=== PATIENT | female | born 1960 | race Caucasian/White ===

== ENCOUNTER 2017-08-01 22:31 | Emergency (ER) | payer SELFPAY ==
[2017-08-01 23:31] LABS: BASO # 0.1 K/uL (0.0-0.2); BASO % 0.8 % (0.0-2.0); EOS # 0.2 K/uL (0.0-0.7); EOS % 3.2 % (0.0-4.0); HEMATOCRIT 37.5 % (34.0-47.0); LYMPH # 3.4 K/uL (1.0-4.3); LYMPH % 48.8 % (20.0-40.0); MEAN CELL VOLUME 74.4 fL (81.0-99.0); MEAN CORPUSCULAR HEMOGLOBIN 23.9 pg (27.0-31.0); MEAN CORPUSCULAR HGB CONC 32.2 g/dL (33.0-37.0); MONO # 0.6 K/uL (0.0-0.8); MONO % 8.3 % (0.0-10.0); RED CELL DISTRIBUTION WIDTH 14.6 % (11.5-14.5); WHITE BLOOD COUNT 6.9 K/uL (4.8-10.8)
[2017-08-01 23:39] LABS: CHLORIDE 110 mmol/L (98-107)
[2017-08-01 23:40] LABS: POTASSIUM 3.8 mmol/L (3.6-5.2); SODIUM 143 mmol/L (132-148)
[2017-08-01 23:42] LABS: ALB/GLOB RATIO 1.3 (1.0-2.1); ALKALINE PHOSPHATASE 58 U/L (38-126); ALT/SGPT 32 U/L (9-52); AST/SGOT 23 U/L (14-36); BILIRUBIN,TOTAL 0.5 mg/dL (0.2-1.3); BLOOD UREA NITROGEN 20 mg/dL (7-17); CARBON DIOXIDE 24 mmol/L (22-30); GFR AFRICAN-AMERICAN > 60; GLUCOSE,RANDOM 96 mg/dL (65-105); TOTAL PROTEIN 7.3 g/dL (6.3-8.3)
[2017-08-01 23:43] LABS: CALCIUM 8.9 mg/dl (8.6-10.4)
[2017-08-02 00:14] LABS: THYROID STIMULATING HORMONE 5.58 mIU/L (0.46-4.68)
[2017-08-02 00:17] LABS: RBC URINE 2 /hpf (0-3); URINE BACTERIA RARE (<OCC); URINE BILIRUBIN NEGATIVE (NEGATIVE); URINE BLOOD NEGATIVE (NEGATIVE); URINE COLOR Yellow (YELLOW); URINE GLUCOSE (UA) NORMAL (Normal); URINE KETONE TRACE mg/dL (NEGATIVE); URINE LEUKOCYTE ESTERASE 1+ Leu/uL (Negative); URINE PROTEIN NEGATIVE (NEGATIVE); URINE UROBILINOGEN NORMAL mg/dL (0.2-1.0); WBC URINE 12 /hpf (0-5)
--- NOTE | 2017-08-02 00:27 | C.PDOC ---
History Of Present Illness Patient presents to ED c/o worsening neck and low back pain since yesterday, similar to prior episodes but stronger in intensity. She states she took Diclofenac yesterday at 3am (first time) without improvement. Today she felt nausea, had several episodes of vomtinig, and also felt her heart racing so came to ED. She denies falls/injuries, chest pain, SOB, fever, cough, abdominal pain, diarrhea, dysuria/hematuria, sensory changes, extremity weakness , urinary retention, bowel/bladder incontinence. Time Seen by Provider: 08/01/17 22:46 Chief Complaint (Nursing): Palpitations History Per: Patient History/Exam Limitations: no limitations Onset/Duration Of Symptoms: Days Current Symptoms Are (Timing): Still Present Severity: Moderate Past Medical History Reviewed: Historical Data, Nursing Documentation, Vital Signs Vital Signs: Last Vital Signs Temp 97.8 F 08/02/17 01:43 Pulse 70 08/02/17 01:43 Resp 18 08/02/17 01:43 BP 113/76 08/02/17 01:43 Pulse Ox 97 08/02/17 01:43 - Medical History PMH: Hypercholesterolemia Family History: States: No Known Family Hx - Social History Hx Alcohol Use: No Hx Substance Use: No Review Of Systems Except As Marked, All Systems Reviewed And Found Negative. Constitutional: Negative for: Fever, Chills Cardiovascular: Positive for: Palpitations. Negative for: Chest Pain Respiratory: Negative for: Cough, Shortness of Breath Gastrointestinal: Positive for: Nausea, Vomiting. Negative for: Abdominal Pain , Diarrhea Genitourinary: Negative for: Dysuria, Hematuria Neurological: Negative for: Weakness, Numbness Physical Exam - Physical Exam Appears: Well, Non-toxic, In Acute Distress (in mild to moderate pain), Other ( anxious appearing ) Skin: Normal Color, Warm, Dry, No Rash Oral Mucosa: Moist Neck: Normal, No Midline Cervical Tenderness, Paracervical Tenderness (left lateral mild TTP at lower cervical/trapezius muscle), No Step Off Deformity Cardiovascular: Rhythm Regular (tachycardic ) Respiratory: Normal Breath Sounds, No Rales, No Rhonchi, No Wheezing Gastrointestinal/Abdominal: Normal Exam, Bowel Sounds, Soft, No Tenderness Back: Normal Inspection, No CVA Tenderness, No Vertebral Tenderness, Paraspinal Tenderness (lumbar ) Extremity: Normal ROM, No Pedal Edema, No Calf Tenderness Extremity: Bilateral: Atraumatic, Normal Color And Temperature, Normal ROM Pulses: Left Dorsalis Pedis: Normal, Right Dorsalis Pedis: Normal Neurological/Psych: Oriented x3, Normal Motor, Normal Sensation ED Course And Treatment - Laboratory Results Result Diagrams: 08/01/17 23:28 08/01/17 23:28 ECG: Interpreted By Me, Viewed By Me (NSR 96 bpm, normal axis, no acute ST/T wave changes7) ECG Interpretation: Normal O2 Sat by Pulse Oximetry: 100 (ra) Pulse Ox Interpretation: Normal - Radiology CXR: Interpreted by Me, Viewed By Me CXR Interpretation: Yes: No Acute Disease. No: Infiltrates Progress Note: Blood work, CXR, EKG, UA, UDS ordered and reviewed. Patient given IV NS bolus, IV toradol, IV zofran. 12:30am- Patient's pain has improved and she would like to go home. TSh abnormal (elevated), T3/T4 sent. Reevaluation Time: 01:35 Reassessment Condition: Improved (Patient reassessed, is currently resting comfortably, in no current pain/distress. She is comfortable being dishcarged home. TSh was elevated, however T3/T4 were WNL. Patient given copies of all results and instructed to follow up with endocrinology within 1 week. She understands she should return to ED if symptoms worsen.) Disposition Counseled Patient/Family Regarding: Studies Performed, Diagnosis, Need For Followup, Rx Given - Disposition Referrals: [facility] [Outside] Hanny Perez MD [Medical Doctor] - Disposition: HOME/ ROUTINE Disposition Time: 01:35 Condition: STABLE Additional Instructions: FOLLOW UP WITH YOUR DOCTOR IN 1-2 DAYS, AND WITH MARKETING STRATEGIST WITHIN 1-2 WEEKS USE MEDICATIONS NEEDED RETURN TO EMERGENCY ROOM IF SYMPTOMS WORSEN Prescriptions: Cyclobenzaprine [Cyclobenzaprine HCl] 10 mg PO BID PRN #15 tab PRN Reason: Muscle Spasm Naproxen [Naprosyn Tab] 375 mg PO BID PRN #20 tab PRN Reason: pain Instructions: Palpitations (ED) Forms: [employer] (Uzbek) Print Language: GEORGIAN - POA Present On Arrival: None - Clinical Impression Clinical Impression: Palpitations, Chronic back pain, TSH elevation, Neck pain
[2017-08-02 01:16] LABS: T4 8.95 ug/dL (5.5-11.0)
[2017-08-02 01:44] VITALS: BP 113/76; PULSE 70; RESP 18; TEMP 97.8
[2017-08-02 04:34] VITALS: O2SAT 100
--- NOTE | 2017-08-02 08:46 | RAD ---
PROCEDURE: CHEST RADIOGRAPH, 1 VIEW HISTORY: palpitations COMPARISON: None available. FINDINGS: LUNGS: No infiltrate bilaterally Premier appears somewhat elevated. Etiology indeterminate. PLEURA: No pneumothorax or pleural fluid seen. CARDIOVASCULAR: Cardiac silhouette appears upper limits normal size. OSSEOUS STRUCTURES: No significant abnormalities. VISUALIZED UPPER ABDOMEN: Normal. OTHER FINDINGS: None. IMPRESSION: Upper limits normal cardiac silhouette, positive function of frontal technical magnification. No infiltrate or pleural effusion bilaterally. Right hemidiaphragm elevation noted.
--- NOTE | 2017-08-06 20:21 | CARD ---
APPROVED REPORT EKG Measurement Heart [id number] <Conclusion> Accelerated Junctional rhythm Cannot rule out Anterior infarct, age undetermined Abnormal ECG
== END 2017-08-02 01:44 | disposition home or self-care (01) ==
LOC: C.ER 22:31
DX: R00.2 Palpitations (principal); G89.29 Other chronic pain; M54.9 Dorsalgia, unspecified; R79.89 Other specified abnormal findings of blood chemistry; M54.2 Cervicalgia
CPT/HCPCS: 71010; 80053; 81001; 82948; 83690; 84436; 84443; 84480; 85025; 96374; 96375; 99285; G0480; J1885; J2405